=== PATIENT | male | born 1950 | race Caucasian/White ===

== ENCOUNTER 2020-04-17 09:39 | Day surgery (SDC) | payer OTHER ==
[2020-04-16 09:49] VITALS: BMI 32.5
[2020-04-17] MEDS ORDERED: LIDOCAINE HCL/PF 2% SDV 5ML VIAL ONE (10:14)
[2020-04-17] MEDS ORDERED: PROPOFOL 20 ML ONE ×2 (10:14)
[2020-04-17 11:16] VITALS: TEMP 97.7
[2020-04-17 11:41] VITALS: BP 134/78; PULSE 80
== END 2020-04-17 11:38 | disposition home or self-care (01) ==
LOC: FASU-ENDO 09:39
PROVIDERS: ATTEND Internal Medicine Gastroenterology
PROC: 0DB78ZX Excision of Stomach, Pylorus, Via Natural or Artificial Opening Endoscopic, Diagnostic (ICD-10-PCS; 2020-04-17)
PROC: 0DB48ZX Excision of Esophagogastric Junction, Via Natural or Artificial Opening Endoscopic, Diagnostic (ICD-10-PCS; 2020-04-17)
PROC: 0DB98ZX Excision of Duodenum, Via Natural or Artificial Opening Endoscopic, Diagnostic (ICD-10-PCS; principal; 2020-04-17 10:54)
DX: K22.8 Other specified diseases of esophagus (principal); K29.70 Gastritis, unspecified, without bleeding; K76.6 Portal hypertension; K31.89 Other diseases of stomach and duodenum; K44.9 Diaphragmatic hernia without obstruction or gangrene
CPT/HCPCS: 82962; 88305-TC; 88342-TC

== ENCOUNTER 2021-11-07 06:19 | Emergency (ER) | payer SELFPAY ==
[2021-11-07 06:27] VITALS: BP 150/84; PULSE 80; RESP 16; TEMP 97.9; BMI 30.2
== END 2021-11-07 06:55 | disposition home or self-care (01) ==
LOC: FER 06:19
DX: M25.512 Pain in left shoulder (principal)
CPT/HCPCS: 73030-TC-LT-FY; 99283-25